=== PATIENT | male | born 1955 | race Caucasian/White ===

== ENCOUNTER 2023-08-08 01:05 | Emergency (ER) | payer OTHER ==
[~2023-08-08] VITALS: Ht 177.8 cm; Wt 90.9 kg
[2023-08-08 01:12] VITALS: TEMP 98.4
[2023-08-08] MEDS ORDERED: ceFAZolin 1 G in Water For Injection,Sterile 10 ML IV ONE (02:15)
[2023-08-08 03:09] LABS: BILIRUBIN,TOTAL 0.3 mg/dL (0.2-1.2); CALCIUM 9.5 mg/dL (8.4-10.2); CREATININE, serum 0.85 mg/dL (0.72-1.25); POTASSIUM 3.5 mEq/L (3.5-4.5); TOTAL PROTEIN 7.1 g/dl (6.2-8.1)
[2023-08-08 03:16] LABS: BASO % 0.5 % (0.0-2.0); EOS # 0.2 K/mm3 (0.0-0.7); GRAN # 4.5 K/mm3 (1.4-6.5); GRAN % 60.8 % (42.2-75.2); HEMATOCRIT 44.3 % (42.0-52.0); HEMOGLOBIN 14.6 g/dl (13.5-18.0); LYMPH # 1.9 K/mm3 (1.2-3.4); LYMPH % 25.5 % (20.0-51.0); MEAN CELL VOLUME 103 fl (80.0-100.0); MEAN CORPUSCULAR HEMOGLOBIN 34 pg (27-31); MEAN CORPUSCULAR HGB CONC 33 g/dl (33.0-37.0); MEAN PLATELET VOLUME 10.4 fl (7.4-10.4); MONO # 0.8 K/mm3 (0.1-0.6); MONO % 10.9 % (1.7-9.3); PLATELET COUNT 218 K/mm3 (130-400); REDCELL DISTRIBUTION WIDTH-CV 13.3 % (11.5-14.5)
[2023-08-08] MEDS ORDERED: CRESTOR40 MG PO (03:46)
[2023-08-08] MEDS ORDERED: COREG 25MG25 MG/TAB (03:46)
[2023-08-08] MEDS ORDERED: PLAVIX 75MG TAB75 MG PO (03:47)
[2023-08-08] MEDS ORDERED: PRINZIDE 12.5 M1 TA1 PO (03:47)
[2023-08-08] MEDS ORDERED: NORVASC 10MG10 MG PO (03:47)
[2023-08-08] MEDS ORDERED: ASPIRIN 81M81 MG/TA2 PO (03:48)
[2023-08-08 04:20] VITALS: BP 161/70; PULSE 78
== END 2023-08-08 05:45 | disposition short-term general hospital (02) ==
LOC: COL.ER 01:05
PROVIDERS: Emergency Medicine
DX: S02.2XXA Fracture of nasal bones, initial encounter for closed fracture (principal); F17.290 Nicotine dependence, other tobacco product, uncomplicated; Z79.82 Long term (current) use of aspirin; Z79.02 Long term (current) use of antithrombotics/antiplatelets; W01.119A Fall on same level from slipping, tripping and stumbling with subsequent striking against unspecified sharp object, initial encounter
CPT/HCPCS: J0690